=== PATIENT | female | born 2000 ===

== ENCOUNTER 2022-11-18 23:55 | Inpatient (IN) | payer OTHER ==
[2022-11-19] VITALS (14 sets, daily range): BP systolic 106–182; BP diastolic 63–108
[2022-11-19] MEDS ORDERED: MORPHINE 10 MG/ML 1ML VIAL IV ONE (00:35)
[2022-11-19] MEDS ORDERED: diphenhydrAMINE 50MG CAP PO PRN (01:15)
[2022-11-19] MEDS ORDERED: LIDOCAINE 1% MDV 20ML VIAL INFIL PRN (01:15)
[2022-11-19] MEDS ORDERED: METHYLERGONOVINE MALEATE 0.2MG/ML 1ML VIAL IM PRN (01:15)
[2022-11-19] MEDS ORDERED: DOCUSATE SODIUM 100MG CAPSULE PO PRN (01:15)
[2022-11-19] MEDS ORDERED: ONDANSETRON 4MG 2ML VIAL IV PRN ×2 (01:15→06:30)
[2022-11-19] MEDS ORDERED: TRANEXAMIC ACID INJection 1,000 MG in NS 100 ML IV PRN (01:15)
[2022-11-19] MEDS ORDERED: OXYTOCIN DRIP 30 UNITS in IV 1 EA IV PRN ×4 (01:15)
[2022-11-19 01:43] LABS: HEMATOCRIT 32.8 % (36.0-47.0); HEMOGLOBIN 11.2 g/dl (12.0-15.5); MEAN CORPUSCULAR HEMOGLOBIN 28.6 pg (27.0-33.0); MEAN CORPUSCULAR HGB CONC 34.1 g/dl (32.0-36.5); MEAN CORPUSCULAR VOLUME 83.9 fl (80.0-96.0); PLATELET COUNT, AUTOMATED 283 10^3/uL (150-450); RED BLOOD COUNT 3.91 10^6/uL (4.00-5.40); WHITE BLOOD COUNT 16.6 10^3/uL (4.0-10.0)
[2022-11-19 01:58] LABS: INR 0.95; PARTIAL THROMBOPLASTIN TIME 24.9 SECONDS (24.8-34.2); PROTHROMBIN TIME 12.9 SECONDS (12.5-14.5)
[2022-11-19 02:07] LABS: ALBUMIN 3.1 G/DL (3.2-5.2); ALKALINE PHOSPHATASE 35 U/L (46-116); ALT/SGPT 14 U/L (7.0-40); AST/SGOT 18 U/L (<34); BILIRUBIN,TOTAL 0.3 MG/DL (0.3-1.2); BLOOD UREA NITROGEN 10 MG/DL (9-23); CARBON DIOXIDE LEVEL 22 MMOL/L (20-31); CHLORIDE LEVEL 104 MMOL/L (98-107); CREATININE FOR GFR 0.61 MG/DL (0.55-1.30); GLUCOSE, FASTING 90 MG/DL (60-100); POTASSIUM SERUM 3.6 MMOL/L (3.5-5.1); SODIUM LEVEL 136 MMOL/L (136-145); TOTAL PROTEIN 6.5 G/DL (5.7-8.2)
[2022-11-19] MEDS ORDERED: ACETAMINOPHEN 500 MG TAB PO PRN (02:15)
[2022-11-19] MEDS: LR 1,000 ML IV SCH ×2 (04:20→09:15)
[2022-11-19] MEDS ORDERED: MORPHINE 10 MG/ML 1ML VIAL IV PRN (04:20)
[2022-11-19] MEDS ORDERED: METHYLERGONOVINE MALEATE 0.2 MG TAB PO PRN (06:30)
[2022-11-19] MEDS ORDERED: DIBUCAINE 1% OINTMENT 30GM TOP PRN (06:30)
[2022-11-19] MEDS ORDERED: PROMETHAZINE 25 MG TAB PO PRN (06:30)
[2022-11-19] MEDS ORDERED: LR 1,000 ML IV SCH (06:30)
[2022-11-19] MEDS ORDERED: OXYTOCIN DRIP 30 UNITS in IV 1 EA IV SCH (06:30)
[2022-11-19] MEDS: ACETAMINOPHEN 500 MG TAB PO SCH ×2 (06:49→13:27)
[2022-11-19] MEDS ORDERED: IBUPROFEN 800 MG TAB PO SCH (08:00)
[2022-11-19] MEDS ORDERED: PRENATAL VITAMINS CHEWABLE TABLET PO SCH (09:00)
[2022-11-19] MEDS ORDERED: IBUP80TA PO (11:43)
[2022-11-19] MEDS ORDERED: ACET-683 PO (11:43)
== END 2022-11-19 13:45 | disposition home or self-care (01) | DRG 805 ==
LOC: M LDO 23:55 → M LDI 11-19 00:33
PROVIDERS: ADMIT Obstetrics & Gynecology; ATTEND Obstetrics & Gynecology
PROC: 10E0XZZ Delivery of Products of Conception, External Approach (ICD-10-PCS; principal; 2022-11-19)
DX: O60.13X0 Preterm labor second trimester with preterm delivery third trimester, not applicable or unspecified (principal); Z37.0 Single live birth; O45.8X2 Other premature separation of placenta, second trimester; Z3A.21 21 weeks gestation of pregnancy; O09.31 Supervision of pregnancy with insufficient antenatal care, first trimester; O09.32 Supervision of pregnancy with insufficient antenatal care, second trimester